=== PATIENT | female | born 1940 | race Caucasian/White ===

== ENCOUNTER 2017-06-25 08:42 | Outpatient (CLI) ==
--- NOTE | 2017-06-25 09:02 | DI ---
Exam: Two x-rays of the chest. Comparison: None available. Reason for exam: Shortness of breath with chronic sinusitis. FINDINGS: No pneumothorax, pleural effusion, or focal consolidation. The cardiac silhouette is unch anged. Old granulomas disease is seen within the lung parenchyma. The osseous structures appear dawit ssly unremarkable without acute fracture. Impression: No acute cardiopulmonary process.
== END 2017-06-25 08:43 | disposition home or self-care (01) ==
LOC: RAD 08:42
PROVIDERS: ATTEND Family Medicine
DX: R06.02 Shortness of breath (principal); J32.9 Chronic sinusitis, unspecified

== ENCOUNTER 2018-01-14 09:21 | Day surgery (SDC) ==
[2018-01-14] MEDS ORDERED: LIDOCAINE 1% 20 ML MDV ID STA (10:00)
[2018-01-14] MEDS ORDERED: VERSED ONE (10:55)
[2018-01-14] MEDS ORDERED: DIPRIVAN 20 ML VIAL IVP ONE (10:55)
[2018-01-14 16:58] VITALS: BP 112/56; TEMP 98.5
--- NOTE | 2018-01-16 10:55 | OP ---
INDICATIONS FOR PROCEDURE: 77-year-old female presents for colonoscopy exam. She has a history of adenonomatous polyps with her last colonoscopy five years ago. She also had an episode of epigastric discomfort. She is feeling better now. MEDICATIONS: SEE ANESTHESIA NOTES. PROCEDURE: 1. ENDOSCOPY, GASTRIC BIOPSY, IRISH DILATATION. 2. COLONOSCOPY, SNARE POLYPECTOMY. REPORT: The risks, benefits, alternatives and limitations were discussed in detail with the patient. Informed consent was obtained. After adequate sedation was achieved, the video endoscope was introduced in the posterior pharynx in the esophagus under direct vision. I easily advanced down to the second portion of the duodenum. I then slowly withdrew. The duodenal mucosa appeared unremarkable as did the duodenal bulb. The antrum and body were relatively unremarkable. The scope was retroflexed to look at cardia and fundus which revealed several small fundic type polyps. I biopsied the largest for histologic review. The scope was anteflexed and withdrawn back into the esophagus. At the GE junction there was circumferential stricture causing mild luminal narrowing. No other abnormalities were noted throughout the esophagus. I advanced the scope back down the gastric lumen. I then withdrew the scope. Over the guidewire I easily advanced a 54 Amharic [place]onian dilator. The patient tolerated the procedure well with stable vital signs and pulse oximetry throughout. The patient's bed was turned. A digital rectal exam revealed good tone, no masses. The colonoscope was introduced into the rectum and advanced under direct visual guidance to the cecum. The cecum was identified by the appendiceal orifice and the IC valve. I then slowly withdrew the scope in a circumferential manner examining the mucosa quite carefully. I looked on the proximal and distal side of folds and flexures as best as possible. I was able to retroflex the scope in the right colon and left colon to increase visualization. In the proximal transverse area, there was a small 5 or 6 mm sessile polyp that I removed by snare technique. In the sigmoid there were several small mouth diverticula. On retroflex view of the anal canal there were non engorged internal hemorrhoids. The prep was good. The withdrawal time was 9 minutes and 20 seconds. The patient tolerated the procedure well with stable vital signs and pulse oximetry throughout. IMPRESSION: 1. FUNDIC TYPE POLYPS, BIOPSIED. 2. DISTAL ESOPHAGEAL STRICTURE DILATED ABOVE. 3. SMALL COLONIC POLYP REMOVED. 4. SIGMOID DIVERTICULOSIS. 5. NON ENGORGED INTERNAL HEMORRHOIDS. RECOMMENDATIONS: 1. Reflux precautions. 2. Await gastric polyp pathology results and further recommendations will be made once we see those results. 3. Await colon polyp pathology. If it is benign as expected, consider a surveillance colonoscopy examination again in five years if clinically appropriate at the time. 4. High fiber diet. 5. I will see her back in the office as needed. CC: DR. MIGDALIA BANGURA
== END 2018-01-14 12:30 | disposition home or self-care (01) ==
LOC: SURG 09:21
PROVIDERS: ATTEND Internal Medicine Gastroenterology
DX: K22.2 Esophageal obstruction (principal); K31.7 Polyp of stomach and duodenum; K63.5 Polyp of colon; K57.30 Diverticulosis of large intestine without perforation or abscess without bleeding; K64.8 Other hemorrhoids; R10.13 Epigastric pain; Z86.010 Personal history of colon polyps